=== PATIENT | female | born 1940 | race Caucasian/White ===

== ENCOUNTER 2024-12-16 06:11 | Day surgery (SDC) | payer MEDICARE, BC, SELFPAY ==
[2024-12-16] VITALS (15 sets, daily range): BP systolic 105–157; BP diastolic 61–95; BMI 27.7
[2024-12-16] MEDS: LOW STRENGTH ASPIRIN 81 MG PO (07:11)
[2024-12-16 07:13] LABS: Hematocrit 37.0 % (37.0-47.0); Hemoglobin 12.4 g/dL (12.0-16.0); Mean Corp Hgb Conc. 33.5 g/dL (33.0-37.0); Mean Corpuscular Volume 89.2 fL (81.0-99.0); Platelet Count 216 10^3/uL (130-400); Red Cell Dist. Width 13.4 % (11.5-14.5)
[2024-12-16] MEDS: NSS 193 ML IV (07:19)
[2024-12-16 07:35] LABS: Blood Urea Nitrogen 14 mg/dl (7-17); Calcium 9.5 mg/dl (8.4-10.2); Carbon Dioxide 24 mmol/L (22-30); Chloride 107 mmol/L (98-107); Estimated Creatinine Clearance 61 ml/min; Glucose 95 mg/dl (70-99); Potassium 4.2 mmol/L (3.5-5.1); Sodium 138 mmol/L (135-145); eGFR > 60.00
[2024-12-16 08:32] LABS: ACT-LR - POC 219 Seconds (116-155)
[2024-12-16 08:54] LABS: ACT-LR - POC 374 Seconds (116-155)
--- NOTE | 2024-12-16 09:41 | ITS.CL.ANGIO ---
[facility] - Angioplasty
Angioplasty
Procedure Report:
LEFT HEART CATHETERIZATION
Date of Procedure: December 16, 2024
Procedures performed:
1: Coronary angiography
2: Left ventricular hemodynamic assessment
3: Percutaneous coronary intervention of the right coronary artery with placement of 2 drug-eluting stents (2.5 x 26 mm Mc overlapping with a 2.75 x 12 mm [place]) postdilated at high pressure with a 3.0 mm diameter noncompliant balloon
Primary Care Provider: Dr. Myra Felix
Primary Assistant Merchandiser: Dr. Adonis Hernandes
INDICATION: The patient is an 84-year-old woman with past medical history of hypertension, hyperlipidemia, stroke in 2023 with cognitive decline who presents with exertional chest pressure. Nuclear perfusion scan suggested extensive RCA or
circumflex ischemia. Echocardiography showed preserved LV systolic function.
ACCESS: The patient was prepped and draped in usual sterile fashion. A 6 Iranian sheath was placed in the right radial artery using the Seldinger over the wire technique. Coronary angiography was challenging due to tortuosity and the great vessels.
HEMODYNAMIC FINDINGS (mmHg):
LV(s/d,EDP): 140/8, 17
Ao(s/d,m): 140/67, 98
ANGIOGRAPHIC FINDINGS:
Single-plane Left Ventriculography in MIRANDA Projection: Not done.
Coronary Angiography:
Dominance: Right
Left Main: Medium caliber, normal
Left Anterior Descending: The LAD is a medium caliber vessel that gives rise to a medium caliber high diagonal branch. The LAD is diffusely calcified in the proximal and midportion with smooth 50 to 60% disease in the proximal portion involving the
takeoff of the diagonal branch. The diagonal branch has a smooth 60 to 70% ostial/proximal stenosis. These vessels have normal distal flow. Angiographic assessment of the proximal LAD and diagonal bifurcation is very difficult due to a unusually
large high first obtuse marginal branch that courses in a ramus distribution and overlaps with the proximal LAD in multiple views.
Left Circumflex: The left circumflex is a relatively large caliber nondominant system that immediately trifurcates after the true circumflex takeoff into 3 vessels. The first obtuse marginal branch is a large vessel that courses in a ramus
distribution as stated above that has a smooth proximal 40% stenosis with normal distal flow. The second obtuse marginal branch is a medium caliber vessel that has mild ostial disease with normal distal flow. The most lateral vessel has 3 major
distal branches and is widely patent with normal flow.
Right Coronary: The right coronary artery is a medium caliber vessel that is heavily calcified within the AV groove. There is a preocclusive 99% mid RCA stenosis. This is followed by a focally heavily calcified area in the acute margin which
appears to have at least a 50% stenosis. This is followed by smooth 30 to 40% stenosis. The distal RCA has moderate bifurcation disease giving rise to a relatively large posterior descending artery and a large posterior left ventricular branch
system. There is a resting distal flow abnormality in both these vessels.
Percutaneous Coronary Intervention (PCI): In light of the above angiographic findings, I elected to proceed with a PCI of the right coronary artery. I anticipated that this would be very challenging due to the heavy calcification. I was also aware
of significant tortuosity in the great vessels which made guide catheter selection challenging for engagement. The patient was pretreated with aspirin. Unfractionated heparin was given. A 6 Iranian AL 0.75 guiding catheter was used with great
difficulty to selectively engage the right coronary artery. Attempts to cross the lesion with a Hi-Torque floppy wire would not successful. A whisper wire was then also unsuccessfully attempted to cross the lesion. Finally a Fielder XT wire with
backup support using a [employer] QuickCross microcatheter was used to successfully cross the preocclusive heavily calcified stenosis. The QuickCross catheter was then advanced with aggressive guide support through the calcified lesion and the
wire was exchanged for a Extra S'port highly supportive wire. A 2.0 x 12 mm balloon was used dilate the critical stenotic area. Attempts to advance the stent were unsuccessful so redilation was performed with a 2.75 mm diameter noncompliant
balloon. A 6 Iranian Guideliner was required to deliver a 2.75 x 26 mm [place] stent which was deployed at 16 [place]. Follow-up angiography showed that there was disease proximal to the previously placed stent that I wanted to cover. A 2.75 x 12 mm [place]
drug-eluting stent was then deployed at the proximal edge entirely covering the diseased segment. The stented segment was postdilated with a 3.0 mm diameter noncompliant balloon at 16 [place] and distal to proximal fashion taking care to stay within
the stented margins. The patient was given a loading dose of clopidogrel 600 mg orally on the table at the end of the procedure.
FINAL RESULT: 0% in-stent residual stenosis with outstanding angiographic result and DIRK-3 flow in all vessels. The lesion at the acute margin is difficult angiographically assessed due to heavy calcification however I am not convinced that it is
flow-limiting. Stenting this critical mid RCA disease has clearly restored normal distal flow. If there is any concern based on future symptoms I would repeat stress testing to confirm that the RCA ischemia is resolved.
Fluoroscopy Time (min): 22.7
Radiation Dose (mGy): 620
DAP (Gy.cm2): 32
Closure device: None. A TR band was applied for hemostasis at the right wrist.
Complications: None.
ASSESSMENT:
1: Successful complex PCI of the right coronary artery with placement of 2 drug-eluting stents as described above.
2: Residual right and left coronary disease as described above. I would treat this medically. Especially in light of her progressive cognitive issues I would try to be conservative with medical therapy.
3: Normal left ventricular filling pressures
CONCLUSIONS and RECOMMENDATIONS:
1: Routine post PCI drug-eluting stent medical therapy and monitoring. Dual antiplatelet therapy with aspirin and Plavix uninterrupted for a year and aspirin 81 mg daily indefinitely.
2: Clinical follow-up as scheduled with Dr. Hernandes. Medical therapy for coronary artery disease.
Orion Stevenson M.D.
[2024-12-16] MEDS: LYRICA 75 MG PO (12:51)
[2024-12-16] MEDS: REQUIP 1 MG PO (12:52)
[2024-12-16] MEDS: EFFEXOR XR 37.5 MG PO (12:52)
--- NOTE | 2024-12-16 12:58 | W.PN.UPDATE ---
Update Note
Progress Note Update
84 yo WF s/p PCI RCA x 2 (Same day). She denies cp, sob, mild abd discomfort relief with ambulation, voiding, denise diet, EKG SR, no ST changes, R rad site c/d/i. She will be on DAPT ASA/Plavix. Activity restrictions reviewed. [facility] c/s. She
will f/u Dr. Hernandes in 1 mo. she is for d/c home after 2p if rad site stable.
== END 2024-12-16 14:10 | disposition home or self-care (01) ==
LOC: CATH 06:11
PROVIDERS: ATTENDING PHYSICIAN Internal Medicine Interventional Cardiology; FAMILY PHYSICIAN Family Medicine; OTHER PHYSICIAN Internal Medicine Cardiovascular Disease
DX: I25.10 Atherosclerotic heart disease of native coronary artery without angina pectoris (principal); I10 Essential (primary) hypertension; R07.89 Other chest pain; R41.89 Other symptoms and signs involving cognitive functions and awareness; Z86.73 Personal history of transient ischemic attack (TIA), and cerebral infarction without residual deficits; E78.5 Hyperlipidemia, unspecified; Z79.82 Long term (current) use of aspirin; Z79.02 Long term (current) use of antithrombotics/antiplatelets
CPT/HCPCS: 80048; 85027; 85347; 93005; 93458; C1725; C1769; C1874; C1887; C1894; C9600; Q9967